=== PATIENT | male | born 1990 | race African-American/Black ===

== ENCOUNTER 2018-10-14 17:29 | Emergency (ER) | payer BC ==
[2018-10-14] MEDS ORDERED: IPRATROPIUM/ALBUTEROL 0.5-2.5 MG/3 ML AMPUL NEB ONE (19:02)
[2018-10-14] MEDS ORDERED: MECLIZINE HCL 25 MG TABLET PO ONE (19:02)
--- NOTE | 2018-10-14 19:04 | ER Document Report ---
HPI - HPI Patient complains to provider of: Cough Time Seen by Provider: 10/14/18 18:57 Onset: Last week Onset/Duration: Persistent Quality of pain: Achy Pain Level: 2 Context: Patient presents complaining of nonproductive cough for the past week. Patient complains of fatigue and occasional dizziness. Patient does complain of sinus congestion. Patient states he had diarrhea last week and abdominal pain prior to having diarrhea but denies any diarrhea for several days now. Patient denies any abdominal pain. Associated Symptoms: Body/muscle aches, Nonproductive cough, Rhinnorhea. denies : Chest pain, Earache, Fever, Headache, Shortness of breath Exacerbated by: Denies Relieved by: Denies Similar symptoms previously: No Recently seen / treated by doctor: No - ROS ROS below otherwise negative: Yes Systems Reviewed and Negative: Yes All other systems reviewed and negative - CONSTITUTIONAL Constitutional: DENIES: Fever - EENT EENT: REPORTS: Congestion. DENIES: Sore Throat - CARDIOVASCULAR Cardiovascular: DENIES: Chest pain - RESPIRATORY Respiratory: REPORTS: Coughing. DENIES: Trouble Breathing - GASTROINTESTINAL Gastrointestinal: DENIES: Abdominal Pain, Nausea, Patient vomiting, Diarrhea - MUSCULOSKELETAL Musculoskeletal: DENIES: Back Pain - DERM Skin Color: Normal Skin Problems: None Past Medical History - General Information source: Patient - Social History Smoking Status: Never Smoker Frequency of alcohol use: None Drug Abuse: None Occupation: [employer] Family History: Reviewed & Not Pertinent - Medical History Medical History: Negative Past Surgical History: Reports: Hx Orthopedic Surgery - 4X R hip, 2X R ankle - Immunizations Hx Diphtheria, Pertussis, Tetanus Vaccination: - unknown Vertical Provider Document - CONSTITUTIONAL Agree With Documented VS: Yes Exam Limitations: No Limitations General Appearance: WD/WN, No Apparent Distress - INFECTION CONTROL TRAVEL OUTSIDE OF THE [place] IN LAST 30 DAYS: No - HEENT HEENT: Atraumatic, Normocephalic. negative: Pharyngeal Exudate, Pharyngeal Tenderness, Pharyngeal Erythema, Tympanic Membrane Red, Tympanic Membrane Bulging Notes: Serous effusion bilateral ears - NECK Neck: Normal Inspection, Supple. negative: Lymphadenopathy-Left, Lymphadenopathy-Right - RESPIRATORY Respiratory: No Respiratory Distress, Chest Non-Tender, Wheezing - Faint wheeze noted only with cough - CARDIOVASCULAR Cardiovascular: Regular Rate, Regular Rhythm, No Murmur. negative: Tachycardia - GI/ABDOMEN Gastrointestinal: Abdomen Soft, Abdomen Non-Tender, No Organomegaly, Normal Bowel Sounds - BACK Back: Normal Inspection. negative: CVA Tenderness-Right, CVA Tenderness-Left - MUSCULOSKELETAL/EXTREMETIES Musculoskeletal/Extremeties: MAEW, FROM, Non-Tender - NEURO Level of Consciousness: Awake, Alert, Appropriate Motor/Sensory: No Motor Deficit - DERM Integumentary: Warm, Dry, No Rash Course - Re-evaluation Re-evalutation: 10/14/18 19:42 Patient reports feeling much better after nebulizer treatment. Respirations even and unlabored. Patient nontoxic in appearance. - Vital Signs Vital signs: Temp Pulse Resp BP Pulse Ox 97.8 F 87 14 139/70 H 97 10/14/18 17:52 10/14/18 17:52 10/14/18 17:52 10/14/18 17:52 10/14/18 17:52 - Diagnostic Test Radiology reviewed: Reports reviewed Discharge - Discharge Clinical Impression: Upper respiratory infection Qualifiers: URI type: unspecified URI Qualified Code(s): J06.9 - Acute upper respiratory infection, unspecified Condition: Stable Disposition: HOME, SELF-CARE Instructions: Inhaled Bronchodilators ([facility]), Steroid Medication, Upper Respiratory Illness ([facility]) Additional Instructions: Return immediately for any new or worsening symptoms Followup with your primary care provider, call tomorrow to make a followup appointment Prescriptions: Guaifenesin/Pseudoephedrne HCl [Mucinex D ER Tablet] 1 each PO Q12 PRN #12 tab.er.[id number] PRN Reason: Forms: Return to Work Referrals: [facility] [Provider Group] - Follow up as needed
--- NOTE | 2018-10-14 19:24 | RADIOLOGY REPORT (SQ) ---
EXAM DESCRIPTION: CHEST 2 VIEWS COMPLETED DATE/TIME: 10/14/2018 7:15 pm REASON FOR STUDY: cough COMPARISON: 05/10/2015 EXAM PARAMETERS: NUMBER OF VIEWS: two views TECHNIQUE: Digital Frontal and Lateral radiographic views of the chest acquired. RADIATION DOSE: NA LIMITATIONS: none FINDINGS: LUNGS AND PLEURA: No opacities, masses or pneumothorax. No pleural effusion. MEDIASTINUM AND HILAR STRUCTURES: No masses or contour abnormalities. HEART AND VASCULAR STRUCTURES: Heart normal size. No evidence for failure. BONES: No acute findings. HARDWARE: None in the chest. OTHER: No other significant finding. IMPRESSION: NO ACUTE RADIOGRAPHIC FINDING IN THE CHEST. TECHNICAL DOCUMENTATION: JOB ID: [id number] [employer]- All Rights Reserved Reading location - IP/workstation name: [email or web address]
[2018-10-14] MEDS ORDERED: DEXAMETHASONE 4 MG TABLET PO ONE (19:42)
[2018-10-14] MEDS ORDERED: ALBUTEROL SULFATE HFA (90 MCG/PUFF) 8 GM MDI (1 MDI/ER DISP) IH ONE (19:42)
[2018-10-14 19:56] VITALS: BP 129/85
== END 2018-10-14 19:56 | disposition home or self-care (01) ==
LOC: ER 17:29
DX: J06.9 Acute upper respiratory infection, unspecified (principal); R53.83 Other fatigue; R42 Dizziness and giddiness; R09.81 Nasal congestion; M79.10 Myalgia, unspecified site
CPT/HCPCS: 99283; 71046; J3490; J7620

== ENCOUNTER 2018-12-12 20:21 | Emergency (ER) | payer BC ==
--- NOTE | 2018-12-13 | ER Document Report ---
ED Medical Screen (RME) - General Chief Complaint: Leg Swelling Stated Complaint: RIGHT LEG SWELLING,DOG BITE Time Seen by Provider: 12/12/18 23:56 Notes: Patient is a 28-year-old male very poor historian states he has had right lower extremity swelling for the last 7 days. Patient states he has had 4 surgeries on his right lower extremity but is unable to tell me what the surgeries were or when they were. Patient states he thinks his last surgery was in 2012. States they were all in [place]. States he went to an emergency room last night but left AGAINST MEDICAL ADVICE because the wait was too long. Past medical history: Bilateral lower extremity surgeries Medications: None Allergies: None GENERAL: Alert, interacts well. No acute distress. EXTREMITIES: Moves all 4 extremities spontaneously. normal radial and dorsalis pedis pulses bilaterally. Significant nonpitting edema noted to the right lower extremity to mid calf. Erythema and some ecchymosis also noted. I have greeted and performed a rapid initial assessment of this patient. A comprehensive ED assessment and evaluation of the patient, analysis of test results and completion of the medical decision making process will be conducted by additional ED providers. TRAVEL OUTSIDE OF THE [place] IN LAST 30 DAYS: No - Related Data Allergies/Adverse Reactions: No Known Allergies Allergy (Verified 10/14/18 19:06) Past Medical History Renal/ Medical History: Denies: Hx Peritoneal Dialysis Past Surgical History: Reports: Hx Orthopedic Surgery - 4X R hip, 2X R ankle - Immunizations Hx Diphtheria, Pertussis, Tetanus Vaccination: - unknown Physical Exam - Vital signs Vitals: Temp Pulse Resp BP Pulse Ox 99.1 F 75 16 115/66 96 12/12/18 20:45 12/12/18 20:45 12/12/18 20:45 12/12/18 20:45 12/12/18 20:45 Course - Vital Signs Vital signs: Temp Pulse Resp BP Pulse Ox 99.1 F 75 16 115/66 96 12/12/18 20:45 12/12/18 20:45 12/12/18 20:45 12/12/18 20:45 12/12/18 20:45
[2018-12-13 01:02] LABS: ABSOLUTE EOSINOPHILS # (AUTO) 0.1 10^3/uL (0.0-0.6); ABSOLUTE LYMPHOCYTES (AUTO) 2.1 10^3/uL (0.5-4.7); ABSOLUTE MONOCYTES (AUTO) 0.6 10^3/uL (0.1-1.4); ABSOLUTE NEUT (AUTO) 2.6 10^3/uL (1.7-8.2); BASOPHILS % (AUTO) 0.6 % (0-2); EOSINOPHILS % (AUTO) 1.7 % (0-6); HEMATOCRIT 42.6 % (37.9-51.0); HEMOGLOBIN 13.9 g/dL (13.5-17.0); LYMPHOCYTES % (AUTO) 38.7 % (13-45); MEAN CORPUSCULAR HEMOGLOBIN 26.4 pg (27.0-33.4); MEAN CORPUSCULAR HGB CONC 32.6 g/dL (32.0-36.0); MEAN CORPUSCULAR VOLUME 81 fl (80-97); MONOCYTES % (AUTO) 10.8 % (3-13); PLATELET COUNT 217 10^3/uL (150-450); RED BLOOD COUNT 5.25 10^6/uL (4.35-5.55); RED CELL DISTRIBUTION WIDTH 17.3 % (11.5-14.0); SEGMENTED NEUTROPHILS % (AUTO) 48.2 % (42-78); TOTAL CELLS COUNTED % (AUTO) 100 %; WHITE BLOOD COUNT 5.4 10^3/uL (4.0-10.5)
[2018-12-13 01:14] LABS: ALANINE AMINOTRANSFERASE 93 U/L (21-72); ALBUMIN 4.4 g/dL (3.5-5.0); ALKALINE PHOSPHATASE 64 U/L (38-126); ASPARTATE AMINO TRANSFERASE 190 U/L (17-59); BILIRUBIN,DIRECT 0.3 mg/dL (0.0-0.4); BILIRUBIN,TOTAL 0.4 mg/dL (0.2-1.3); BLOOD UREA NITROGEN 18 mg/dL (7-20); CALCIUM 9.3 mg/dL (8.4-10.2); CARBON DIOXIDE 31 mmol/L (22-30); GLUCOSE 81 mg/dL (75-110); POTASSIUM 4.2 mmol/L (3.6-5.0); TOTAL PROTEIN 7.4 g/dL (6.3-8.2)
[2018-12-13 01:24] LABS: ANION GAP 5 (5-19); CHLORIDE 108 mmol/L (98-107)
--- NOTE | 2018-12-13 01:24 | RADIOLOGY REPORT (SQ) ---
EXAM DESCRIPTION: XR TIBIA FIBULA 2 VIEWS COMPLETED DATE/TME: 12/12/2018 23:57 CLINICAL HISTORY: 28 years, Male, swelling COMPARISON: None. FINDINGS: No fracture or dislocation. Soft tissue swelling about the ankle. Multiple phleboliths are noted. IMPRESSION: No acute abnormality.
[2018-12-13] MEDS ORDERED: ENOXAPARIN SODIUM INJ 120 MG/0.8 ML DISP.SYRIN SUBCUT SCH ×2 (02:15→10:00)
--- NOTE | 2018-12-13 02:18 | ER Document Report ---
ED General - General Chief Complaint: Leg Swelling Stated Complaint: RIGHT LEG SWELLING,DOG BITE Time Seen by Provider: 12/12/18 23:56 Notes: Patient is a 28-year-old male without chronic medical problems who presents with 10 days of progressively worsening swelling to his right lower extremity. He also complains of a dog bite to his right hand that occurred 3 weeks ago but has since healed. He reports that the right lower 70 has become increasingly more swollen over the last 24-48-hour period. Describes it as a throbbing, aching, constant pain worsened by walking. Nothing improves the pain. No history of similar symptoms in the past. No history of DVT or pulmonary embolus in the past. No history of hypercoagulability. Does not have a primary care physician. Denies any chest pain, pleuritic pain or shortness of breath. TRAVEL OUTSIDE OF THE [place] IN LAST 30 DAYS: No - Related Data Allergies/Adverse Reactions: No Known Allergies Allergy (Verified 10/14/18 19:06) Past Medical History - General Information source: Patient - Social History Smoking Status: Current Every Day Smoker Frequency of alcohol use: Occasional Drug Abuse: None Lives with: Family Family History: Reviewed & Not Pertinent Renal/ Medical History: Denies: Hx Peritoneal Dialysis Past Surgical History: Reports: Hx Orthopedic Surgery - 4X R hip, 2X R ankle - Immunizations Hx Diphtheria, Pertussis, Tetanus Vaccination: - unknown Review of Systems - Review of Systems Notes: Constitutional: Negative for fever. HENT: Negative for sore throat. Eyes: Negative for visual changes. Cardiovascular: Negative for chest pain. Respiratory: Negative for shortness of breath. Gastrointestinal: Negative for abdominal pain, vomiting or diarrhea. Genitourinary: Negative for dysuria. Musculoskeletal: Positive for right lower extremity swelling and pain Skin: Negative for rash. Neurological: Negative for headaches, weakness or numbness. 10 point ROS negative except as marked above and in HPI. Physical Exam - Vital signs Vitals: Temp Pulse Resp BP Pulse Ox 99.1 F 75 16 115/66 96 12/12/18 20:45 12/12/18 20:45 12/12/18 20:45 12/12/18 20:45 12/12/18 20:45 Interpretation: Normal Notes: PHYSICAL EXAMINATION: GENERAL: Well-appearing, well-nourished and in no acute distress. HEAD: Atraumatic, normocephalic. EYES: Pupils equal round and reactive to light, extraocular movements intact, sclera anicteric, conjunctiva are normal. ENT: nares patent, oropharynx clear without exudates. Moist mucous membranes. NECK: Normal range of motion, supple without lymphadenopathy LUNGS: Breath sounds clear to auscultation bilaterally and equal. No wheezes rales or rhonchi. HEART: Regular rate and rhythm without murmurs, 2+ DP pulse bilaterally ABDOMEN: Soft, nontender, normoactive bowel sounds. No guarding, no rebound. No masses appreciated. EXTREMITIES: There is marketed swelling of the right lower extremity below the level of the knee. 3-4+ pitting edema to the level of the thigh. Scattered ecchymosis over the affected area. Mild pain on palpation. NEUROLOGICAL: No focal neurological deficits. Moves all extremities spontaneously and on command. PSYCH: Normal mood, normal affect. SKIN: Warm, Dry, normal turgor, no rashes or lesions noted. Course - Re-evaluation Re-evalutation: 12/13/18 02:15 Patient presents with signs and symptoms very worrisome for an acute DVT of the right lower extremity. Notes 10 days of progressively worsening swelling and edema below the level of the knee on the right side. The area is diffusely edematous, 4+ pitting edema not present on the left side. Although the patient reports he was bit by dog dissection on his right hand and was 3 weeks ago. The area is well-healed, no evidence of infection I do not think there is any relation between these 2 symptoms. The patient is otherwise well in appearance and I do not clinically suspect a cellulitis as it was this far progressed had expect that the patient would have marketed systemic symptoms. He has no fever, no leukocytosis. A bedside ultrasound appears to be indicative of noncompressibility of the popliteal vessel again worrisome for DVT. I have empirically treated the patient with a dose of Lovenox and I have clearly instructed him that he needs to return in the morning for a formal ultrasound to definitively diagnose a DVT. I have offered that the patient could remain here in the emergency room and overnight until that time but he has declined stating that he has a friend's car and cannot keep here overnight. He understands the importance of returning to the emergency department for definitive diagnostic testing - Vital Signs Vital signs: Temp Pulse Resp BP Pulse Ox 99.1 F 68 18 136/99 H 100 12/12/18 20:45 12/13/18 02:48 12/13/18 02:48 12/13/18 02:48 12/13/18 02:48 - Laboratory Result Diagrams: 12/13/18 00:50 12/13/18 00:50 Laboratory results interpreted by me: 12/13/18 12/13/18 00:50 00:50 [facility] 26.4 L RDW 17.3 H Chloride 108 H Carbon Dioxide 31 H AST 190 H ALT 93 H Discharge - Discharge Clinical Impression: Right leg swelling Condition: Good Disposition: HOME, SELF-CARE Additional Instructions: I am very worried that you have a clot in your right leg causing the swelling. I am not able to get the ultrasound tonight and you have elected to return in t he morning. Please come back between 8 and 9 AM to the emergency department. You need a venous Doppler study to definitively evaluate for a blood clot in your leg. You have been given a dose of a blood thinner tonight. Return sooner for any worsening pain, worsening of any symptoms, fever, or any additional concerns.
[2018-12-13] MEDS ORDERED: ENOXAPARIN SODIUM INJ 120 MG/0.8 ML DISP.SYRIN SUBCUT ONE (02:30)
[2018-12-13 02:48] VITALS: BP 136/99
== END 2018-12-13 03:03 | disposition home or self-care (01) ==
LOC: ER 20:21
DX: M79.89 Other specified soft tissue disorders (principal); F17.200 Nicotine dependence, unspecified, uncomplicated
CPT/HCPCS: 99284; 96372; 36415; 87040; 85025; 80053; 73590; J1650

== ENCOUNTER 2018-12-13 09:26 | Emergency (ER) | payer BC ==
[2018-12-13 09:33] VITALS: BP 141/81
--- NOTE | 2018-12-13 11:29 | ER Document Report ---
ED Medical Screen (RME) - General TRAVEL OUTSIDE OF THE [place] IN LAST 30 DAYS: No <DARWIN MUELLER - Last Filed: 12/13/18 11:28> - HPI Patient complains to provider of: Right leg swelling pain <ANIBAL ROSEN - Last Filed: 12/13/18 15:14> - General Chief Complaint: Leg Pain Stated Complaint: RIGHT LEG PAIN Time Seen by Provider: 12/13/18 11:23 Notes: 28-year-old male patient seen here last night with a right leg pain and swelling 10 days. He had a workup and was treated with Lovenox. He was instructed to return this morning for a venous Doppler study. I have greeted and performed a rapid initial assessment of this patient. A comprehensive ED assessment and evaluation of the patient, analysis of test r esults and completion of the medical decision making process will be conducted by additional ED providers. (DARWIN MUELLER) - HPI Notes: 12/13/18 15:14 Patient coming in for right leg swelling and pain. Patient was seen by RME provider notes provided below (ANIBAL ROSEN) - Related Data Allergies/Adverse Reactions: No Known Allergies Allergy (Verified 10/14/18 19:06) Past Medical History Renal/ Medical History: Denies: Hx Peritoneal Dialysis Past Surgical History: Reports: Hx Orthopedic Surgery - 4X R hip, 2X R ankle - Immunizations Hx Diphtheria, Pertussis, Tetanus Vaccination: - unknown <DARWIN MUELLER - Last Filed: 12/13/18 11:28> - Vital signs Vitals: Temp Pulse Resp BP Pulse Ox 98.2 F 84 16 141/81 H 98 12/13/18 09:31 12/13/18 09:31 12/13/18 09:31 12/13/18 09:31 12/13/18 09:31 - Vital Signs Vital signs: Temp Pulse Resp BP Pulse Ox 98.2 F 84 16 141/81 H 98 12/13/18 09:31 12/13/18 09:31 12/13/18 09:31 12/13/18 09:31 12/13/18 09:31 Doctor's Discharge <DARWIN MUELLER - Last Filed: 12/13/18 11:28> <ANIBAL ROSEN - Last Filed: 12/13/18 15:14> - Discharge Disposition: AGAINST MEDICAL ADVICE
--- NOTE | 2018-12-14 07:30 | ER Document Report ---
ED General - General Chief Complaint: Leg Pain Stated Complaint: RIGHT LEG PAIN Time Seen by Provider: 12/13/18 11:23 TRAVEL OUTSIDE OF THE [place] IN LAST 30 DAYS: No - HPI Patient complains to provider of: right leg pain Notes: Patient coming in for evaluation of the right swollen leg. Patient was seen in the triage area notes provided below 28-year-old male patient seen here last night with a right leg pain and swelling 10 days. He had a workup and was treated with Lovenox. He was instructed to return this morning for a venous Doppler study. Patient returning now for his Doppler. Patient denies any other trauma did review the note from the provider previously concerned that there is a noncompressible area in the patient's leg. Patient denies any recent travel de nies any trauma denies any family history of DVT or blood clots patient otherwise resting comfortably upon my evaluation - Related Data Allergies/Adverse Reactions: No Known Allergies Allergy (Verified 10/14/18 19:06) Past Medical History - Social History Smoking Status: Current Every Day Smoker Frequency of alcohol use: None Family History: Reviewed & Not Pertinent Patient has suicidal ideation: No Patient has homicidal ideation: No Renal/ Medical History: Denies: Hx Peritoneal Dialysis Past Surgical History: Reports: Hx Orthopedic Surgery - 4X R hip, 2X R ankle - Immunizations Hx Diphtheria, Pertussis, Tetanus Vaccination: - unknown Review of Systems - Review of Systems Constitutional: No symptoms reported EENT: No symptoms reported Cardiovascular: No symptoms reported Respiratory: No symptoms reported Gastrointestinal: No symptoms reported Genitourinary: No symptoms reported Male Genitourinary: No symptoms reported Musculoskeletal: Leg swelling Skin: No symptoms reported Hematologic/Lymphatic: No symptoms reported Neurological/Psychological: No symptoms reported -: Yes All other systems reviewed and negative Physical Exam - Vital signs Vitals: Temp Pulse Resp BP Pulse Ox 98.2 F 84 16 141/81 H 98 12/13/18 09:31 12/13/18 09:31 12/13/18 09:31 12/13/18 09:31 12/13/18 09:31 Interpretation: Normal - General General appearance: Appears well, Alert - HEENT Head: Normocephalic, Atraumatic Eyes: Normal Pupils: PERRL - Respiratory Respiratory status: No respiratory distress Chest status: Nontender Breath sounds: Normal Chest palpation: Normal - Cardiovascular Rhythm: Regular Heart sounds: Normal auscultation Murmur: No - Abdominal Inspection: Normal Distension: No distension Bowel sounds: Normal Tenderness: Nontender Organomegaly: No organomegaly - Back Back: Normal, Nontender - Extremities General upper extremity: Normal inspection, Nontender, Normal color, Normal ROM, Normal temperature General lower extremity: Nontender, Normal color, Normal ROM, Normal temperature, Normal weight bearing. No: Normal inspection - Left leg unaffected right leg markedly swollen with 3+ pitting edema noticeable size difference between the right and left leg and was consistent with a lymphedema type picture, Dio's sign - Neurological Neuro grossly intact: Yes Cognition: Normal Orientation: AAOx4 Zia Coma Scale Eye Opening: Spontaneous [place] Coma Scale Verbal: Oriented [place] Coma Scale Motor: Obeys Commands [place] Coma Scale Total: 15 Speech: Normal Motor strength normal: LUE, RUE, LLE, RLE Sensory: Normal - Psychological Associated symptoms: Normal affect, Normal mood - Skin Skin Temperature: Warm Skin Moisture: Dry Skin Color: Normal Course - Re-evaluation Re-evalutation: 12/14/18 07:35 Patient was in the hallway bed did have difficulty in having her Doppler team come down and evaluate the patient did discuss this case with the house carpenter that we did not have any free rooms available for her Doppler obtained to assess the patient here in ER accommodations were made to have the patient taken to the ultrasound suite with a Doppler will be performed after this was arranged I was later notified by nursing staff the patient decided to sign out AGAINST MEDICAL ADVICE stating that he would go to the hospital with more than 1 Doppler team that he has been waiting too long and that he had transportation issues. 12/14/18 07:36 I do not reevaluate this patient before he signed out AGAINST MEDICAL ADVICE - Vital Signs Vital signs: Temp Pulse Resp BP Pulse Ox 98.2 F 84 16 141/81 H 98 12/13/18 09:31 12/13/18 09:31 12/13/18 09:31 12/13/18 09:31 12/13/18 09:31 Discharge - Discharge Clinical Impression: Right leg swelling Condition: Good Disposition: AGAINST MEDICAL ADVICE
== END 2018-12-13 13:08 | disposition left against medical advice (07) ==
LOC: ER 09:26
DX: M79.89 Other specified soft tissue disorders (principal); F17.200 Nicotine dependence, unspecified, uncomplicated; Z53.29 Procedure and treatment not carried out because of patient's decision for other reasons
CPT/HCPCS: 99283